=== PATIENT | male | born 1965 | race Caucasian/White ===

== ENCOUNTER 2018-07-25 19:40 | Emergency (ER) | payer OTHER ==
[2018-07-25] MEDS: CEFTRIAXONE 1 GM INJ IM (22:11)
[2018-07-25 22:19] LABS: ABNORMAL IP MESSAGE 1; ADD MAN DIFF? YES; HEMATOCRIT 46.8 % (42.0-52.0); HEMOGLOBIN 16.2 g/dl (14.0-18.0); MEAN CORPUSCULAR HEMOGLOBIN 31.1 pg (29.0-33.0); MEAN CORPUSCULAR HGB CONC 34.6 g/dl (32.0-37.0); MEAN CORPUSCULAR VOLUME 89.8 fl (82.0-101.0); MEAN PLATELET VOLUME 9.2 fl (7.4-10.4); PLATELET COUNT 321 10^3/UL (140-415); POSITIVE DIFF @See below; RED BLOOD COUNT 5.21 10^6/ul (4.70-6.10); RED CELL DISTRIBUTION WIDTH 11.8 % (11.5-14.5)
[2018-07-25 22:19] LABS: WHITE BLOOD COUNT 19.3 10^3/ul (4.8-10.8)
[2018-07-25 22:36] LABS: CARBON DIOXIDE 27 mmol/L (21-31); CHLORIDE 100 mmol/L (97-110); POTASSIUM 4.5 mmol/L (3.5-5.1); SODIUM 142 mmol/L (135-144)
[2018-07-25 22:37] LABS: ALANINE AMINOTRANSFERASE 26 IU/L (13-69); ALBUMIN 4.5 g/dl (3.3-4.9); ALBUMIN/GLOBULIN RATIO 1.09; ALKALINE PHOSPHATASE 137 IU/L (42-121); ANION GAP 15 (5-13); ASPARTATE AMINO TRANSFERASE 18 IU/L (15-46); BILIRUBIN,INDIRECT 0.7 mg/dl (0-1.1); BILIRUBIN,TOTAL 0.7 mg/dl (0.2-1.3); BLOOD UREA NITROGEN 16 mg/dl (7-20); CALCIUM 9.9 mg/dl (8.4-10.2); CREATININE 0.97 mg/dl (0.61-1.24); Estimated GFR > 60 mL/min (>60); GLUCOSE 123 mg/dl (70-220); INR 1.04; PARTIAL THROMBOPLASTIN TIME 28.4 Sec (23.0-35.0); PROTIME 13.7 Sec (11.9-14.9); PT RATIO 1.1; TOTAL PROTEIN 8.6 g/dl (6.1-8.1)
[2018-07-25 22:41] LABS: ANISOCYTOSIS 1+ (0-0); BAND NEUTROPHILS #M 0.3 10^3/ul (0.0-0.6); BAND NEUTROPHILS % (M) 2 % (0-4); EOSINOPHILS % (M) 34 % (0-7); LYMPHOCYTES % (M) 21 % (15-51); METAMYELOCYTES #M 0.1 10^3/ul (0.0-0.0); METAMYELOCYTES %M 1 % (0-0); MICROCYTOSIS 1+ (0-0); MONOCYTE #M 1.5 10^3/ul (0.3-0.9); MONOCYTES % (M) 8 % (0-11); PLATELET ESTIMATE NORMAL; SEG NEUT #M 6.6 10^3/ul (1.6-7.5); SEGMENTED NEUTROPHILS (M) % 34 % (39-77); SMUDGE%M 4 % (0-0)
[2018-07-26] MEDS: AZITHROMYCIN 500 MG TAB PO (01:22)
== END 2018-07-26 01:40 | disposition home or self-care (01) ==
LOC: FTE 07-26 01:40
DX: J18.9 Pneumonia, unspecified organism (principal); R07.9 Chest pain, unspecified
CPT/HCPCS: 71046; 71250; 80053; 83605; 85025; 85610; 85730; 87040-91; 87400; 93005; 96372; 99285-25